=== PATIENT | female | born 1960 | race Caucasian/White ===

== ENCOUNTER 2016-10-11 01:33 | Inpatient (IN) | payer BC ==
[~2016-10-11] VITALS: Ht 167.6 cm; Wt 111.3 kg
--- NOTE | ~2016-10-11 | CON ---
PATIENT'S NAME: CHRISTEN MARIA (EJ) [facility] AGE: 56 Y [address] ROOM: [address] [place], [place] [address] LOCATION: GPCU ADMIT DATE: 10/11/2016 Consultation DISCHARGE DATE: FAMILY PHYSICIAN: ASIF WILL DO ATTENDING PHYSICIAN: TIM HUBBARD DATE OF CONSULTATION: 10/14/2016 REFERRING PHYSICIAN: YOKO SETH MD CONSULTATION NOTE REQUESTING PHYSICIAN: Consultation is requested by Dr. Tim Hubbard and Dr. Swapna Orellana. REASON FOR CONSULTATION: Lumbar wound infection with bacteremia. HISTORY OF PRESENT ILLNESS: Christen is a pleasant 56-year-old female, whom I was asked to see today by Dr. Tim Hubbard and Dr. Swapna Orellana for further evaluation and treatment recommendations regarding lumbar wound infection with staphylococcal bacteremia. She was admitted on 10/11/2016 with two days of swelling, erythema, and fever in the area of prior surgery. She has undergone a posterior lumbar fusion approximately two weeks earlier, and was doing well previously. She did not have any significant drainage from the wound. 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 She underwent surgery on 10/12/2016, with the finding of superficial abscess, with cultures positive for methicillin-susceptible Staphylococcus aureus. Blood cultures obtained at [facility] on 10/11/2016 have grown the same organism from both sets. She is currently on cefazolin 2 g every 8 hours. PAST MEDICAL HISTORY: As above, also obstructive sleep apnea, type 2 diabetes, depression, and spinal stenosis. ALLERGIES: NONE NOTED. CURRENT MEDICATIONS: See the MAR for complete listing. Current antibiotics are cefazolin. SOCIAL HISTORY: PAT[facility]'S NAME: [facility] AGE: 56 Y [address] ROOM: [id number] [place], [place] [address] LOCATION: GPCU ADMIT DATE: 10/11/2016 Consultation DISCHARGE DATE: FAMILY PHYSICIAN: ASIF WILL DO ATTENDING PHYSICIAN: TIM HUBBARD She is a previous cigarette smoker, but does not drink alcohol significantly. FAMILY HISTORY: Significant for type 2 diabetes in her mother. REVIEW OF SYSTEMS: A complete review of systems was carried out, and was remarkable only as noted. Please refer to the admitting history and physical on 10/11/[address] Hubbard for further details. PHYSICAL EXAMINATION: Objective: GENERAL APPEARANCE: She appeared overall comfortable and was in no distress. She appeared nontoxic. VITAL SIGNS: Temperature is 37 degrees, blood pressure 114/55, pulse 76, and respirations 18. HEENT: Posterior pharynx clear, no adenopathy or thyromegaly. Cranial nerves are intact. Neck is supple. CHEST: Clear to auscultation. CARDIOVASCULAR: Regular rate and rhythm without S3, S4, or murmur. ABDOMEN: Soft, nontender, without hepatosplenomegaly or masses. EXTREMITIES: No synovitis or rashes. The lumbar surgical site appeared intact without erythema or drainage. NEUROLOGIC: Strength and sensation grossly intact. PSYCHIATRIC: Behavior and affect appropriate. LABORATORY DATA AND IMAGING STUDIES: Laboratory - creatinine 0.5. Liver function tests, normal. CRP 27.4. White count 7900. Sedimentation rate 69. Microbiology - blood cultures x2 on 10/14/2016 have been drawn and are pending. Surgical cultures from the lumbar back on 10/12/2016 showed Staphylococcus aureus from all specimens. Blood cultures x2 on 10/11/2016 showed Staphylococcus aureus ([facility]). Clostridium difficile toxin assay 10/11/16 was negative. Radiology - CT scan on 10/11/2016 showed fluid collection posterior to the sacrum and postoperative changes. IMPRESSION AND PLAN: Lumbar wound infection and Staphylococcus aureus bacteremia with methicillin- susceptible Staphylococcus aureus. Assuming that there are no further positive cultures, then we will plan on a 2 to 4 week treatment course, with the duration guided by her clinical course and response of inflammatory parameters. Followup blood cultures were obtained today and are pending. If PATIENT'S NAME: CHRISTEN MARIA (EJ) [facility] AGE: 56 Y [address] ROOM: [place] [address] LOCATION: GPCU ADMIT DATE: 10/11/2016 Consultation DISCHARGE DATE: FAMILY PHYSICIAN: ASIF WILL DO ATTENDING PHYSICIAN: TIM HUBBARD these turn positive, then the duration would need to be significantly longer. We will continue with cefazolin 2 g every 8 hours. An alternate would be ertapenem 1 g q.24 hours. She will follow up with us in clinic in 2 weeks after discharge. I am available to answer any questions at [phone]. MD MERLINE CHAVEZ/modl /[id number] CC: MD Tim Alas MD d: 10/14/16 1638 t: 10/15/16 0836, CONSULTATION REPORT
--- NOTE | ~2016-10-11 | HP ---
[facility] A[facility] 56 Y [address] ROOM: [place] [address] LOCATION: GPCU ADMIT DATE: 10/11/2016 History & Physical DISCHARGE DATE: FAMILY PHYSICIAN: ASIF WILL DO ATTENDING PHYSICIAN: ISAI HUBBARD DATE OF SERVICE: CHIEF COMPLAINT: Lower back pain. HISTORY OF PRESENT ILLNESS: This is a 56-year-old female, who on September 23, 2016 in [place] by neurosurgeon, Dr. Curtis Pradhan, performed a PLF/PLIF, lumbar decompression, posterior nonsegmental instrumentation with insertion of interbody biosynthetic device, autograft spine surgery local from same incision, allograft for spine surgery only morselized, and prosthetic implant, nos. At the same time, a presacral mass and severe stenosis and facet synovitis was found and removed. The patient says that after the surgery she was doing well; however, until 2 days ago the surgical site area in her lower back became tender and erythematous and warm and then she was having chills and fever as well. Ever since the surgery, the patient also has been having loose stools about 4 to 5 times a day and yesterday she has had about 2 episodes. She denies any antibiotic usage after the surgery. The patient went to [place] today for evaluation. Given that [place] is further away than our hospital, the patient was sent over here for further care. The patient denies any neurological symptoms such as muscle weakness or numbness or any other symptoms. The pain is localized in the lumbar area and does not radiate. She also denies any bowel or urinary incontinence or retention. The patient also denies any other symptoms. REVIEW OF SYSTEMS: As mentioned in history of present illness. All other systems were reviewed and were negative except those mentioned in history of present illness. PAST MEDICAL HISTORY: 1. History of supraventricular tachycardia in the past. 2. Hypothyroidism. 3. Obstructive sleep apnea on BiPAP at night. 4. Diabetes type 2. 5. Restless legs syndrome. 6. Depression. [facility] 56 Y [address] ROOM: [place] [address] LOCATION: GPCU ADMIT DATE: 10/11/2016 History & Physical DISCHARGE DATE: FAMILY PHYSICIAN: ASIF WILL DO ATTENDING PHYSICIAN: ISAI HUBBARD 7. Spondylolisthesis and spinal stenosis in the lumbar area status post the procedure that I mentioned in the history of present illness on September 23, 2016. ALLERGIES: NONE. HOME MEDICATIONS: Currently is being reconciled. SOCIAL HISTORY: She was a former cigarette smoker about 1 pack per day for many years, but she quit about 1 year ago. She denies any illegal drug or alcohol use. FAMILY HISTORY: Father is healthy. Mother has diabetes type 2. PAST SURGICAL HISTORY: 1. Status post lumbar decompression and PLF/PLIF, posterior nonsegmental instrumentation, insertion of interbody biosynthetic device, autograft spine surgery local from same incision, allograft for spine surgery only morselized, and removal of a presacral mass and also found to have severe stenosis and facet synovitis. This was done on September 23, 2016. 2. Hysterectomy and bilateral salpingo-oophorectomy. 3. Cholecystectomy. PHYSICAL EXAMINATION: VITAL SIGNS: At the time of my evaluation, temperature 99.4, blood pressure 118/54, heart rate 100, respirations 16, saturation 95% on room air. GENERAL APPEARANCE: Alert and oriented x3. Currently, in no acute distress. HEENT: Pupils equally round and reactive to light. Extraocular muscles intact. Anicteric sclerae. Nasal turbinates normal bilaterally. Moist oral mucosa. NECK: No JVD. CARDIOVASCULAR: Regular rate and rhythm. Normal S1 and S2. No murmur. No rubs. No gallops. RESPIRATORY: Clear to auscultation. No rales. No rhonchi. No wheezing. No crackles. ABDOMEN: Obese, soft, nontender, nondistended, normal bowel sounds, no mass. EXTREMITIES: No edema in upper or lower extremities. SKIN: In the lower back in the midline incision in the lumbar area, there is erythema and also loose gabo. I do not appreciate any active drainage. There is some granulation tissue seen. The area is warm, tender, and erythematous. NEUROLOGIC: Grossly nonfocal. PATIENT'S NAME: INDIRA MARIA (EJ) [facility] AGE: 56 Y [address] ROOM: [id number] [place], [place] [address] LOCATION: GPCU ADMIT DATE: 10/11/2016 History & Physical DISCHARGE DATE: FAMILY PHYSICIAN: ASIF WILL DO ATTENDING PHYSICIAN: ISAI HUBBARD LABORATORY DATA: Currently, our labs are pending. Blood work from the outside facility on the day of transfer showed white blood cell 18.5, hemoglobin 13, hematocrit 38.5, platelet 427. Sodium 134, potassium of 3.7, chloride 125, anion gap 18.9, carbon dioxide 24, glucose 121, BUN 11, creatinine 0.8, GFR 74, calcium 9.2, total protein 7.6, globulin 3.2, albumin 4.5, AST 16, ALT 27, alkaline phosphatase 89, total bilirubin 1.1. Lactic acid 1.6. IMAGING STUDIES: None. ASSESSMENT AND PLAN: 1. Regarding her sepsis secondary to cellulitis in the lower back in the postsurgical area in the lumbar area: Not quite sure how deep is the infection given that this is a post surgical site infection area. Currently, the patient does not have any neurological symptoms. I will be getting a CT lumbar spine without contrast for better evaluation to rule out any epidural abscess or other diagnosis that is not evident on simple inspection of the skin. I will get 2 sets of blood culture. The patient already got antibiotics from [place]. The patient got one dose of IV vancomycin and also IV Zosyn. Given that patient is currently hemodynamically stable, I will not continue antibiotics given that I will be getting a CT scan of the lumbar spine right now and I will consult Neurosurgery in case that patient will require debridement and also biopsy, and then at that time, the antibiotics can be started. If it is determined that the patient does not require any debridement or biopsy, the antibiotics of course will be resumed. This was done to avoid decrease in the sensitivity of the quality of the biopsy given that if we give antibiotics, the results can be affected. We will check a UA. Repeat labs in the morning. Further plan will depend on clinical course. The patient will be n.p.o. at midnight. The patient will also be getting IV fluids for hydration. Pain control with IV morphine p.r.n. and also p.o. [place] p.r.n.. Also, after debridement, drainage, or biopsy, will resume antibiotics. 2. Regarding her history of supraventricular tachycardia: We will get EKG right now to confirm sinus rhythm. I will hold the Cardizem in the setting of sepsis. We can always resume if necessary. 3. Regarding her diabetes type 2: We will check A1c. Continue the home insulin but instead of 60 units of the subcu glargine of insulin Levemir, give her 30 units half, and then titrate as necessary. I will also be giving her subcu regular insulin q.6 hours while n.p.o. with low-dose. While she is eating, I will give her subcu aspart insulin a.c. h.s. low dose and titrate as needed. In addition, we will continue her home PATIENT'S NAME: INDIRA MARIA (EJ) [facility] AGE: 56 Y [address] ROOM: [id number] [place], [place] [address] LOCATION: GPCU ADMIT DATE: 10/11/2016 History & Physical DISCHARGE DATE: FAMILY PHYSICIAN: ASIF WILL DO ATTENDING PHYSICIAN: ISAI HUBBARD medication with Victoza. 4. Regarding her hypothyroidism: Check TSH. Continue home dose of the levothyroxine and titrate if needed depending on the TSH level. 5. Regarding her obstructive sleep apnea: For now, use oxygen nasal cannula and titrate at night during bedtime for saturation more than 94%. Tomorrow morning, the patient's will bring the BiPAP at home and then we can use the BiPAP. 6. Regarding her restless legs syndrome: Continue home medication. Currently, the medication list is being reconciled. 7. Regarding her depression: She is not suicidal. Continue the antidepressant that she takes at home which currently is being reconciled. 8. Deep vein thrombosis prophylaxis: The patient will be getting compression devices in anticipation of possible debridement and also biopsy tomorrow. The records of the detailed procedure of the lumbar surgery is already in the chart which is the operative report. 9. She is a full code. Time spent in care on the day of admission 45 minutes where 10 minutes was spent on chart review, and the remainder of the time was spent on interview and physical examination and also on counseling. The counseling includes going over the plan of care with the patient in detail and I answered all her questions and concerns to her satisfaction. Further plan will depend on clinical course. MD LIVAN WINCHESTER/sherry /[id number] D: [id number] T: [id number] HISTORY & PHYSICAL
--- NOTE | ~2016-10-11 | DS ---
PATIENT'S NAME: INDIRA MARIA) [facility] AGE: 56 Y [address] ROOM: [place] [address] LOCATION: GPCU ADMIT DATE: 10/11/2016 Discharge Summary DISCHARGE DATE: 10/16/2016 FAMILY PHYSICIAN: Vincenzo Sims DO ATTENDING PHYSICIAN: Tim Cruz PRIMARY/DISCHARGE DIAGNOSES: 1. Sepsis. 2. Sacral abscess status post incision and drainage. 3. Anasarca. 4. Diabetes mellitus, type 2. 5. Essential hypertension. 6. Chronic hypoxic respiratory failure with chronic obstructive pulmonary disease. 7. Lumbar spinal stenosis status post recent posterior lumbar fusion with laminectomy and decompression. 8. Morbid obesity. 9. Hypothyroidism. 10. Restless legs syndrome. 11. Depression. OPERATIONS OR PROCEDURES: Incision and drainage of the infected lumbar wound. Incision was performed on 10/12/[address] Orellana. HISTORY OF PRESENTING ILLNESS AND REASON FOR ADMISSION: Please refer to the H and P dictated on 10/11/2016. HOSPITAL COURSE: The patient was admitted to the hospital as noted above with a presumptive diagnosis of sepsis with an infected surgical wound following lumbar back surgery which was performed on September 23 at an outside facility in [place]. Briefly, she was hemodynamically stable from the onset. She did receive broad- spectrum antibiotic therapy with vancomycin initially. Cefazolin was added. Eventually, the vancomycin was discontinued. Cultures from an outside facility showed MSSA. Followup blood cultures here were negative. She was taken for I and D of the abscess by Dr. Orellana on 10/12/2016. Wound cultures did reveal an MSSA. She was continued on cefazolin. Infectious Disease was consulted for antibiotic recommendations and treatment duration. She had a mid line placed, but on the date of discharge, this was discontinued and a PICC line was placed. Cultures were negative for more than 48 hours at that point. She was recommended to continue on IV cefazolin for 2 to 4 weeks, and we will do this by home infusion. She was recommended to follow up with PATIENT'S NAME: INDIRA MARIA (EJ) [facility] AGE: 56 Y [address] ROOM: [place] [address] LOCATION: GPCU ADMIT DATE: 10/11/2016 Discharge Summary DISCHARGE DATE: 10/16/2016 FAMILY PHYSICIAN: Vincenzo Sims DO ATTENDING PHYSICIAN: Tim Cruz [facility] in 2 weeks and then outpatient followup with Dr. Orellana. DISCHARGE INSTRUCTIONS: 1. Diet: ADA, 1800-calorie per day as tolerated. 2. Activity: As tolerated. 3. Medications: Cefazolin 2 g IV q.8 hours through 11/09/2016. 4. Pneumococcal vaccine subcutaneous x1. 5. Diltiazem CD 300 mg p.o. q. day. 6. Cymbalta 60 mg p.o. b.i.d. 7. Insulin glargine 60 units subcutaneous q.a.m. 8. Levothyroxine 75 mcg p.o. at bedtime. 9. Trazodone 50 mg p.o. at bedtime. 10. Percocet 5/325, 1 tablet p.o. q.4 hours p.r.n. 11. Victoza subcutaneous q.a.m. 12. Estradiol 0.5 mg p.o. q. day. 13. Metformin 1000 mg p.o. b.i.d. 14. Invokana 300 mg p.o. q.a.m. 15. Flexeril 10 mg p.o. t.i.d. p.r.n. 16. Followup: She will follow up with her primary care physician in 5 to 7 days. 17. She will follow up with Dr. Orellana in 2 weeks, and follow up with Infectious Disease Clinic on the same day. CONDITION ON DISCHARGE: Good. Total time spent on discharge process 45 minutes. MD WHITNEY CLEARY/sherry /[id number] d: 10/16/[id number] t: 10/20/161727, DISCHARGE SUMMARY
--- NOTE | ~2016-10-11 | OR ---
PATIENT'S NAME: INDIRA MARIA (EJ) [facility] AGE: 56 Y [address] ROOM: [address] [address] LOCATION: GPCU ADMIT DATE: 10/11/2016 OR/Procedure Report DISCHARGE DATE: FAMILY PHYSICIAN: ASIF WILL DO ATTENDING PHYSICIAN: ISAI HUBBARD SURGEON: Swapna Orellana MD BRIDGE IRONWORKER: Meli Washington. DATE OF PROCEDURE: 10/12/2016 PREOPERATIVE DIAGNOSIS: Lumbar fusion wound infection. POSTOPERATIVE DIAGNOSIS: Lumbar fusion wound infection. PROCEDURE PERFORMED: Incision, re-exploration, and drainage of infected lumbar wound incision. ANESTHESIA: General. ANESTHESIA PROVIDER: Trevon Kuo CRNA HISTORY: This patient is a 56-year-old female who originally had spinal fusion surgery for spondylolisthesis on September 23, 2016, in [place]. Unfortunately, she developed a wound infection requiring incision and drainage. I went over the benefits, risks, and alternatives of the procedure with the patient, and she was brought to the operating room on October 12, 2016, for the surgery. PROCEDURE IN DETAIL: In the operating room, the patient was placed in a supine position. Anesthesia was induced. She was intubated. She was then rolled to a prone position on a Dami table, taking care to protect all pressure points. The incision was reopened, and almost immediately, purulent fluid came out. The incision was then deepened all the way down to the epidural level and extended the entire length of the incision. More purulent material was extracted. The incision was then copiously irrigated. All visible necrotic tissue was debrided. Hemostasis was achieved. An epidural drain was left and brought out through a separate stab incision. After thorough cleansing of the incision, the wound was closed with appropriate suture materials. A sterile dressing was applied. The patient was then rolled back to a supine position. Her anesthesia was reversed. She was extubated and taken to the recovery room to complete her recovery. I was present at and performed every aspect of this procedure, assisted at different times by the operating room nurses. There were no apparent intraoperative complications. Swabs, needles, and instruments were all accounted for at the end of the case. Estimated blood loss was less than 100 mL, and there was no reason for blood transfusion. The patient is to be started on antibiotics PATIENT'S NAME: INDIRA MARIA (EJ) [facility] AGE: 56 Y [address] ROOM: [place] [address] LOCATION: GPCU ADMIT DATE: 10/11/2016 OR/Procedure Report DISCHARGE DATE: FAMILY PHYSICIAN: ASIF WILL DO ATTENDING PHYSICIAN: ISAI HUBBARD until her incision heals. MD CAITLYN BUTTSO/michaell /[id number] CC: MD sAif Oliveira DO d: 10/14/16 1326 t: 10/15/16 0023, OPERATIVE SUMMARY
--- NOTE | ~2016-10-11 | CON ---
PATIENT'S NAME: CHRISTEN SAAVEDRA) [facility] AGE: 56 Y [address] ROOM: [place] [address] LOCATION: GPCU ADMIT DATE: 10/11/2016 Consultation DISCHARGE DATE: FAMILY PHYSICIAN: ASIF WILL DO ATTENDING PHYSICIAN: ISAI HUBBARD DATE OF CONSULTATION: 10/11/2016 REFERRING PHYSICIAN: YOKO SETH MD REQUESTING PHYSICIAN: Dr. Hubbard, hospitalist. REASON FOR CONSULTATION: Lumbar wound infection. PATIENT IDENTIFICATION: Christen Saavedra is a 56-year-old female. PRESENTING COMPLAINTS: Fever and low back pain. HISTORY OF PRESENT ILLNESS: The patient had posterior lumbar interbody fusion surgery for L4-5 spondylolisthesis in [place] on September 23, 2016. She did well after the surgery and her pain was just around the incision. She then went to [place] again for a followup visit on October 08, 2016, and upon her return, began to experience worsening low back pain and fever. She presented to the emergency room in [place] on the October 10, 2016, and was evaluated and suspected to have a wound infection. She was therefore transferred to [facility] under the care of the hospitalist for evaluation and treatment. I was consulted to see her given that she had had spine surgery done. 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 Currently, the patient complains of back pain and intermittent fever and chills. She has already been started on vancomycin empirically. PAST MEDICAL HISTORY: Significant for hypothyroidism; obstructive sleep apnea, she wears a BiPAP at nighttime; type 2 diabetes; restless legs syndrome; depression; and a history of supraventricular tachycardia. She also has hypothyroidism. CURRENT MEDICATIONS: Please see chart. PATIENT'S NAME: CHRISTEN SAAVEDRATY) [facility] AGE: 56 Y [address] ROOM: [place] [address] LOCATION: GPCU ADMIT DATE: 10/11/2016 Consultation DISCHARGE DATE: FAMILY PHYSICIAN: ASIF WILL DO ATTENDING PHYSICIAN: ISAI HUBBARD ALLERGIES: NONE KNOWN. 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 She is a former pack-a-day cigarette smoker for several years, but she quit a year ago. She is . FAMILY HISTORY: The patient's mother has type 2 diabetes. Father is healthy. REVIEW OF SYSTEMS: A 10-point review of systems was carried out. The only abnormal findings are described in the history of present illness. PHYSICAL EXAMINATION: GENERAL: The patient is a healthy-looking female, not acutely ill at this time. VITAL SIGNS: From chart, blood pressure 118/54, heart rate 100. NEUROLOGICAL: Speech is intact. Cranial nerves, no deficits seen. Motor examination, the patient has normal strength in all the major muscle groups of her upper and lower extremities bilaterally. She is able to ambulate independently and also with physical therapy. Back incision has healed well. There is no drainage. There is some induration around the incision and it is tender to palpation. CARDIOVASCULAR: Heart sounds are present. RESPIRATORY: The patient is not short of breath at bedside. EXTREMITIES: No cyanosis or clubbing. SKIN: No skin rashes or skin masses. ABDOMEN: Obese, nontender. Head: Her head is atraumatic. Eyes and ears: No evidence of trauma. LABORATORY INVESTIGATIONS: We got a call from [facility] in the early hours of October 12, 2016, indicating a positive blood culture. IMAGING STUDIES: The patient had a noncontrast CT scan performed here in [place]. The impression is retrospinal subcutaneous soft tissue induration with an organized fluid collection. Abscess versus seroma within the differential. There is also postsurgical changes at L4-5. White count is 18.5, hemoglobin is 13.0, and platelets 427. PATIENT'S NAME: CHRISTEN SAAVEDRA (EJ) [facility] AGE: 56 Y [address] ROOM: [place] [address] LOCATION: GPCU ADMIT DATE: 10/11/2016 Consultation DISCHARGE DATE: FAMILY PHYSICIAN: ASIF WILL DO ATTENDING PHYSICIAN: ISAI HUBBARD ASSESSMENT: A 56-year-old lady status post spinal fusion presenting with fever, wound pain, positive blood culture, and elevated white count. IMPRESSION: Wound infection with abscess. MEDICAL DECISION MAKING: I discussed treatment options with the patient and in the final analysis, I feel that the safest course of action is an incision and drainage of the wound. I feel this will provide a definitive diagnosis and also achieve decompression of the fluid collection in her back. I have gone over the benefits, risks, and alternatives of the surgery with the patient. The patient has consented to surgery. The procedure will be reexploration of lumbar spinal incision. Procedure will be performed today, October 12, 2016. MD CAITLYN BUTTSO/modl /[id number] CC: DO Piter Simpson MD d: 10/12/16 0939 t: 10/12/16 2206, CONSULTATION REPORT
[2016-10-11] MEDS ORDERED: TOUJEO SOL300 UNIT/1 SUB-Q (02:07)
[2016-10-11] MEDS ORDERED: VICTOZA 3-0.6 MG/0.1 SUB-Q (02:08)
[2016-10-11] MEDS ORDERED: CARDIZEM CD (T300 MG PO (02:09)
[2016-10-11] MEDS ORDERED: ESTRACE0.5 MG PO (02:12)
[2016-10-11] MEDS ORDERED: LEVOTHYROXINE75 MCG PO (02:15)
[2016-10-11] MEDS ORDERED: METFORMIN HCL1000 MG PO (02:16)
[2016-10-11] MEDS ORDERED: INVOKANA300 MG PO (02:17)
[2016-10-11] MEDS ORDERED: DULOXETINE HCL60 MG PO (02:18)
[2016-10-11] MEDS ORDERED: DESYREL50 MG PO (02:18)
[2016-10-11] MEDS ORDERED: PERCOCET 5-3251 EACH PO (02:19)
[2016-10-11] MEDS ORDERED: FLEXERIL10 MG PO (02:19)
[2016-10-11 05:38] LABS: BASOPHIL # 0.1 K/uL (0.0-0.2); BASOPHIL % 0.4 %; EOSINOPHIL % 0.3 %; HEMATOCRIT 34.1 % (33.0-46.0); HEMOGLOBIN 11.5 g/dL (10.0-15.0); IMMATURE GRANULOCYTE # 0.1 K/uL (0.0-0.3); IMMATURE GRANULOCYTE % 0.4 %; LYMPHOCYTE # 1.5 K/uL (0.8-4.0); LYMPHOCYTE % 10.3 %; MCH 27.7 pg (27.0-34.0); MCHC 33.7 gm/dL (32.0-36.5); MCV 82.2 fl (83.0-98.0); MONOCYTE # 0.8 K/uL (0.0-1.0); MONOCYTE % 5.3 %; MPV 8.2 fl (9.4-12.4); NEUTROPHIL # (ANC) 11.9 K/uL (1.8-7.8); NEUTROPHIL % 83.3 %; NRBC % 0 /100WBC (0-0.00); PLATELET COUNT 276 K/uL (150-450); RBC 4.15 M/uL (3.50-5.50); RDW-CV 12.7 % (11.9-14.6); WBC 14.3 K/uL (4.0-11.0)
[2016-10-11 06:02] LABS: ALBUMIN 2.9 gm/dL (3.5-5.0); ALK PHOS 76 IU/L (33-138); ALT 16 IU/L (12-78); ANION GAP 17.3 (10.0-19.0); AST 7 IU/L (10-40); BLOOD UREA NITROGEN 10 mg/dL (6-24); CALCIUM 8.4 mg/dL (8.5-10.5); CHLORIDE 100 mMol/L (96-110); CO2 21 mMol/L (22-32); CPK 39 IU/L (21-215); CREATININE 0.7 mg/dL (0.5-1.1); POTASSIUM 3.3 mMol/L (3.7-5.1); SODIUM 135 mMol/L (135-145); TOTAL BILIRUBIN 1.1 mg/dL (0.0-1.5); TOTAL PROTEIN 6.6 g/dL (6.0-8.4)
[2016-10-11 06:12] LABS: INR - (THERAPEUTIC) 1.16 (0.92-1.07); PROTIME 12.2 SECONDS (9.8-11.4); PTT 35 SECONDS (25-32)
[2016-10-11 09:17] LABS: HEMATOCRIT 32.9 % (33.0-46.0); MCH 27.6 pg (27.0-34.0); MCHC 33.4 gm/dL (32.0-36.5); MCV 82.5 fl (83.0-98.0); MPV 8.2 fl (9.4-12.4); RBC 3.99 M/uL (3.50-5.50); RDW-CV 12.8 % (11.9-14.6); WBC 13.4 K/uL (4.0-11.0)
[2016-10-11 09:43] LABS: ANION GAP 16.3 (10.0-19.0); BLOOD UREA NITROGEN 8 mg/dL (6-24); CALCIUM 8.3 mg/dL (8.5-10.5); CHLORIDE 102 mMol/L (96-110); CO2 21 mMol/L (22-32); CREATININE 0.6 mg/dL (0.5-1.1); POTASSIUM 3.3 mMol/L (3.7-5.1); SODIUM 136 mMol/L (135-145)
[2016-10-11 10:40] LABS: BILIRUBIN URINE NEGATIVE (NEGATIVE); BLOOD URINE NEGATIVE /UL (NEGATIVE); COLOR URINE YELLOW (YELLOW); GLUCOSE URINE 1000 mg/dL (NEGATIVE); KETONE URINE 150 mg/dL (NEGATIVE); LEUKOCYTES URINE NEGATIVE /UL (NEGATIVE); NITRITE URINE NEGATIVE (NEGATIVE); PROTEIN URINE NEGATIVE (NEGATIVE); SPEC GRAVITY URINE 1.015 (1.003-1.035); TURBIDITY URINE CLEAR (CLEAR); UROBILINOGEN URINE NORMAL (NORMAL)
[2016-10-13 05:11] LABS: BASOPHIL % 0.5 %; EOSINOPHIL # 0.4 K/uL (0.0-0.5); EOSINOPHIL % 5.2 %; HEMATOCRIT 29.5 % (33.0-46.0); HEMOGLOBIN 9.4 g/dL (10.0-15.0); IMMATURE GRANULOCYTE # 0.1 K/uL (0.0-0.3); IMMATURE GRANULOCYTE % 0.8 %; LYMPHOCYTE # 1.2 K/uL (0.8-4.0); LYMPHOCYTE % 14.7 %; MCH 26.8 pg (27.0-34.0); MCHC 31.9 gm/dL (32.0-36.5); MONOCYTE # 0.6 K/uL (0.0-1.0); MONOCYTE % 7.5 %; MPV 8.6 fl (9.4-12.4); NEUTROPHIL # (ANC) 5.7 K/uL (1.8-7.8); NEUTROPHIL % 71.3 %; NRBC % 0 /100WBC (0-0.00); PLATELET COUNT 298 K/uL (150-450); RBC 3.51 M/uL (3.50-5.50); RDW-CV 13.3 % (11.9-14.6); WBC 7.9 K/uL (4.0-11.0)
[2016-10-13 05:25] LABS: ALBUMIN 2.3 gm/dL (3.5-5.0); BLOOD UREA NITROGEN 7 mg/dL (6-24); CALCIUM 7.6 mg/dL (8.5-10.5); CHLORIDE 113 mMol/L (96-110); CREATININE 0.5 mg/dL (0.5-1.1); PHOSPHORUS 2.6 mg/dL (2.5-4.9); POTASSIUM 3.9 mMol/L (3.7-5.1); SODIUM 141 mMol/L (135-145)
[2016-10-13 05:26] LABS: ANION GAP 15.9 (10.0-19.0); CO2 16 mMol/L (22-32)
[2016-10-15 07:02] LABS: BASOPHIL % 0.7 %; EOSINOPHIL # 0.5 K/uL (0.0-0.5); EOSINOPHIL % 11.3 %; HEMATOCRIT 27.4 % (33.0-46.0); HEMOGLOBIN 9.2 g/dL (10.0-15.0); IMMATURE GRANULOCYTE % 0.7 %; LYMPHOCYTE # 1.2 K/uL (0.8-4.0); LYMPHOCYTE % 28.7 %; MCH 27.7 pg (27.0-34.0); MCHC 33.6 gm/dL (32.0-36.5); MCV 82.5 fl (83.0-98.0); MONOCYTE # 0.5 K/uL (0.0-1.0); MONOCYTE % 10.8 %; MPV 8.4 fl (9.4-12.4); NEUTROPHIL % 47.8 %; NRBC % 0 /100WBC (0-0.00); PLATELET COUNT 267 K/uL (150-450); RBC 3.32 M/uL (3.50-5.50); RDW-CV 13.2 % (11.9-14.6); WBC 4.2 K/uL (4.0-11.0)
[2016-10-15 07:19] LABS: ALBUMIN 2.3 gm/dL (3.5-5.0); ANION GAP 11.4 (10.0-19.0); BLOOD UREA NITROGEN 6 mg/dL (6-24); CALCIUM 8.5 mg/dL (8.5-10.5); CHLORIDE 109 mMol/L (96-110); CO2 25 mMol/L (22-32); CREATININE 0.5 mg/dL (0.5-1.1); PHOSPHORUS 4.2 mg/dL (2.5-4.9); POTASSIUM 3.4 mMol/L (3.7-5.1); SODIUM 142 mMol/L (135-145)
[2016-10-16] MEDS ORDERED: CEFAZOLIN2 GM/50 M1 IV (10:16)
== END 2016-10-16 13:50 | disposition disaster alternative care site (69) | DRG 856 ==
LOC: GPCU 01:33
PROVIDERS: Family Medicine; ADMIT Internal Medicine
PROC: 009U00Z Drainage of Spinal Canal with Drainage Device, Open Approach (ICD-10-PCS; principal; 2016-10-12)
PROC: 02HV33Z Insertion of Infusion Device into Superior Vena Cava, Percutaneous Approach (ICD-10-PCS; 2016-10-16)
DX: T81.4XXA Infection following a procedure, initial encounter (principal); A41.9 Sepsis, unspecified organism; J96.10 Chronic respiratory failure, unspecified whether with hypoxia or hypercapnia; E44.0 Moderate protein-calorie malnutrition; L03.312 Cellulitis of back [any part except buttock and flank]; E66.01 Morbid (severe) obesity due to excess calories; I10 Essential (primary) hypertension; E11.9 Type 2 diabetes mellitus without complications; B95.61 Methicillin susceptible Staphylococcus aureus infection as the cause of diseases classified elsewhere; J44.9 Chronic obstructive pulmonary disease, unspecified; E03.9 Hypothyroidism, unspecified; Z68.37 Body mass index [BMI] 37.0-37.9, adult; G25.81 Restless legs syndrome; E87.6 Hypokalemia; G47.33 Obstructive sleep apnea (adult) (pediatric); F32.9 Major depressive disorder, single episode, unspecified; Z98.1 Arthrodesis status; Z79.4 Long term (current) use of insulin; Z87.891 Personal history of nicotine dependence; Z98.84 Bariatric surgery status; Z86.79 Personal history of other diseases of the circulatory system; Z23 Encounter for immunization
CPT/HCPCS: C1751; G0009; J0690; J1940; J2270; J3010; J3370; J7030; J7040; J7042; J7050

== ENCOUNTER 2016-11-02 15:54 | Inpatient (IN) | payer BC ==
[~2016-11-02] VITALS: Ht 167.6 cm; Wt 100.4 kg
--- NOTE | ~2016-11-02 | CON ---
PATIENT'S NAME: INDIRA MARIA [facility] AGE: 56 Y [address] ROOM: [address] [address] LOCATION: [facility] ADMIT DATE: 11/02/2016 Consultation DISCHARGE DATE: FAMILY PHYSICIAN: ASIF WILL DO ATTENDING PHYSICIAN: Swapna Orellana REASON FOR CONSULTATION: Medical management. HISTORY OF PRESENT ILLNESS: This is a 56-year-old female who says that roughly 3 days ago, she starts noticing this yellowish and bloody secretion coming out from the surgical site (she had a history of infected surgical wound from lumbar back surgery back in [place] and she was hospitalized here in our hospital earlier this month for infected surgical wound from the lumbar back surgery and also was found to have MSSA bacteremia. Currently still on long-term cefazolin antibiotics via PICC line, scheduled to finish on 11/09/2016). She says that the drainage is not foul smelling and she denies any fever or chills. She actually denies any pain at that time. She went to [place] on that same day and 3 days ago to the emergency room, but she was sent home without any further intervention. When she went home, the drainage continued and then she started feeling a little bit of pain in that area and then she called the wound care nurse and the patient was referred here to follow with Dr. Orellana. Dr. Orellana saw the patient today in the office and the patient underwent CT- guided lumbar wound drainage and they put a draining tube and then sent the secretion for sensitivity, culture and Gram stain and about 40 mL of serosanguineous fluid was collected during the draining process. REVIEW OF SYSTEMS: As mentioned in the history of present illness. All other systems were reviewed and were negative except those mentioned in history of present illness. PAST MEDICAL HISTORY: 1. History of sacral abscess status post incision and drainage from infected lumbar spinal stenosis surgical wound and she was hospitalized here in early October 2016. She was found to have MSSA bacteremia as well. Currently, still on cefazolin to be continued until November 2016. 2. Diabetes type 2. 3. Hypertension. 4. COPD. 5. Obstructive sleep apnea, on home CPAP. 6. Restless legs syndrome. 7. Hypothyroidism. 8. Depression. PATIENT'S NAME: INDIRA MARIA [facility] AGE: 56 Y [address] ROOM: [id number] [place], [place] [address] LOCATION: [facility] ADMIT DATE: 11/02/2016 Consultation DISCHARGE DATE: FAMILY PHYSICIAN: ASIF WILL DO ATTENDING PHYSICIAN: Swapna Orellana HOME MEDICATIONS: Currently has been reconciled. SOCIAL HISTORY: She was a former cigarette smoker about 1 pack per day for many years but she quit 1 year ago. She denies any illegal drug or alcohol use. FAMILY HISTORY: Father is healthy. Mother has diabetes type 2. PAST SURGICAL HISTORY: 1. Status post lumbar decompression. Lower back surgery for spinal lumbar spinal stenosis. Has hardware implantation at that time as well and got sacral wound infection with sacral abscess status post incision and drainage and found to have MSSA bacteremia and currently still on cefazolin with PICC line to be continued until November 2016. 2. Hysterectomy and bilateral salpingo-oophorectomy. 3. Cholecystectomy. PHYSICAL EXAMINATION: VITAL SIGNS: At the time of evaluation, temperature was 98, heart rate was 64, respiration was 18, blood pressure 142/80, saturation 93% on room air. GENERAL APPEARANCE: Alert and oriented x3. Currently, in no acute distress. HEENT: Pupils are equal, round, and reactive to light. Extraocular muscles intact. Anicteric sclerae. Nasal turbinates are normal bilaterally. Moist oral mucosa. NECK: No JVD. CARDIOVASCULAR: Regular rate and rhythm. No murmur. No rubs. No gallops. Normal S1, S2. RESPIRATORY: Clear to auscultation. No rales. No rhonchi. No wheezing. No crackles. ABDOMEN: Obese, soft, nontender, nondistended, bowel sounds present, no mass. EXTREMITIES: No edema in upper or lower extremities. SKIN: On the lower back and on the lumbosacral area, there is surgical incision scar currently does not look infected and there is no active drainage. There is no secretion coming out. On the left side lateral to the lumbar sacral area, there is a dressing on and she has a draining tube, draining about 200 mL of a serosanguineous fluid in the back. Some tenderness to palpation in the draining tube placement area. NEUROLOGIC: Grossly nonfocal. LABORATORY DATA: No labs were drawn on admission. IMAGING STUDIES: PATIENT'S NAME: INDIRA MARIA [facility] AGE: 56 Y [address] ROOM: [id number] [place], [place] [address] LOCATION: [facility] ADMIT DATE: 11/02/2016 Consultation DISCHARGE DATE: FAMILY PHYSICIAN: ASIF WILL DO ATTENDING PHYSICIAN: Swapna Orellana MRI of the lumbar spine on admission showed postoperative L4-L5 laminectomy, interbody fusion, and posterior stabilization. Large posterior subcutaneous fluid collection deep to the incision, increased versus 10/11/2016. Abscess could not be excluded. This communicates with a deeper small fluid collection in the L4-L5 laminectomy bed. No evidence of diskitis or osteomyelitis. No abnormal epidural fluid collections. ASSESSMENT AND PLAN: 1. Regarding her postoperative lumbar surgical area drainage and fluid collection: Abscess less likely given that during the draining process, it was a serosanguineous fluid. However I will be checking a blood work right now to make sure she is not septic and will also be giving her antibiotics that she is already on which is cefazolin given that she has evidence of MSSA from last admission from bacteremia. We will consult ID again this Wednesday to continue to follow up. We will follow on the Gram stain, culture and sensitivity from the draining secretion during the surgery today. Further plan will depend on clinical course. Currently, there is no more planned surgery in the near future. She can have a diabetic diet. Pain control with IV morphine p.r.n. Further plan will depend on clinical course. 2. Regarding her type 2 diabetes. A1c was already checked last time on 10/11/2016 was 5.8. Continue sliding scale insulin with NovoLog. Mild a.c. and h.s. as well as continue her home medication which would include Toujeo 60 units daily as well as Victoza 1.8 mg subcu daily and the Invokana 300 mg p.o. daily. Titrate as necessary. 3. Regarding her hypothyroidism. Continue current levothyroxine 75 mcg p.o. daily. No need to repeat TSH since she was checked recently on last admission. 4. Hypertension: Continue home medication with holding parameter. Continue home medication which include Cardizem. 5. Regarding her chronic obstructive pulmonary disease. Continue oxygen as necessary to keep saturation more than 88%. Currently not in flare. Does not require nebulization at the moment. 6. Depression: Continue her home medication with duloxetine. 7. Regarding her obstructive sleep apnea. The patient refused CPAP or BiPAP. Continue home oxygen as necessary to keep saturation more than 88%. 8. Regarding her deep venous thrombosis prophylaxis. Per Neurosurgery. Currently, she is on compression devices. 9. She is a full code. 10. We will also be getting 2 sets of blood culture to make sure that her history of MSSA bacteremia does not repeat at this time. Time spent in care on the day of admission 45 minutes where 10 minutes was spent on chart review, remainder of the time was spent on interview and PATIENT'S NAME: INDIRA MARIA [facility] AGE: 56 Y [address] ROOM: [place] [address] LOCATION: [facility] ADMIT DATE: 11/02/2016 Consultation DISCHARGE DATE: FAMILY PHYSICIAN: ASIF WILL DO ATTENDING PHYSICIAN: Swapna Orellana physical examination and also on counseling. The counseling includes going over the plan of care with the patient and addressing all the questions and concerns that the patient had. Further plan will depend on clinical course. I answered all her questions to her satisfaction. Further plan will depend on clinical course. ISAI HUBBARD MD CC/michaell /[id number] d: 11/03/16910 t: 11/16/162037, CONSULTATION REPORT
[~2016-11-02 15:54] MED LIST changes: -HYDROCODON-ACE1 EAC4 PO
[2016-11-02] MEDS ORDERED: HYDROCODON-ACE1 EAC4 PO (20:20)
[2016-11-03 02:15] LABS: BASOPHIL % 0.6 %; EOSINOPHIL # 0.2 K/uL (0.0-0.5); EOSINOPHIL % 3.9 %; HEMOGLOBIN 10.6 g/dL (10.0-15.0); IMMATURE GRANULOCYTE % 0.2 %; LYMPHOCYTE % 36.2 %; MCHC 31.8 gm/dL (32.0-36.5); MCV 81.8 fl (83.0-98.0); MONOCYTE # 0.4 K/uL (0.0-1.0); MONOCYTE % 7.6 %; MPV 8.3 fl (9.4-12.4); NEUTROPHIL # (ANC) 2.8 K/uL (1.8-7.8); NEUTROPHIL % 51.5 %; NRBC % 0 /100WBC (0-0.00); PLATELET COUNT 242 K/uL (150-450); RBC 4.07 M/uL (3.50-5.50); RDW-CV 13.3 % (11.9-14.6); WBC 5.4 K/uL (4.0-11.0)
[2016-11-03 02:23] LABS: HEMATOCRIT 33.3 % (33.0-46.0)
[2016-11-03 02:25] LABS: INR - (THERAPEUTIC) 0.99 (0.92-1.07); PROTIME 10.4 SECONDS (9.8-11.4)
[2016-11-03 02:32] LABS: PTT 26 SECONDS (25-32)
[2016-11-03 02:39] LABS: ALK PHOS 67 IU/L (33-138); ANION GAP 10.9 (10.0-19.0); AST 9 IU/L (10-40); BLOOD UREA NITROGEN 9 mg/dL (6-24); CALCIUM 8.7 mg/dL (8.5-10.5); CHLORIDE 107 mMol/L (96-110); CO2 28 mMol/L (22-32); CREATININE 0.5 mg/dL (0.5-1.1); POTASSIUM 3.9 mMol/L (3.7-5.1); SODIUM 142 mMol/L (135-145); TOTAL PROTEIN 6.6 g/dL (6.0-8.4)
[2016-11-03 02:40] LABS: ALT < 10 IU/L (12-78); TOTAL BILIRUBIN 0.2 mg/dL (0.0-1.5)
[2016-11-03 08:49] LABS: HEMATOCRIT 30.9 % (33.0-46.0); HEMOGLOBIN 9.7 g/dL (10.0-15.0); MCH 25.8 pg (27.0-34.0); MCHC 31.4 gm/dL (32.0-36.5); MCV 82.2 fl (83.0-98.0); MPV 8.4 fl (9.4-12.4); RBC 3.76 M/uL (3.50-5.50); RDW-CV 13.5 % (11.9-14.6); WBC 4.5 K/uL (4.0-11.0)
[2016-11-03 08:54] LABS: ANION GAP 10.9 (10.0-19.0); BLOOD UREA NITROGEN 8 mg/dL (6-24); CALCIUM 8.3 mg/dL (8.5-10.5); CHLORIDE 107 mMol/L (96-110); CO2 27 mMol/L (22-32); CREATININE 0.6 mg/dL (0.5-1.1); POTASSIUM 3.9 mMol/L (3.7-5.1); SODIUM 141 mMol/L (135-145)
[2016-11-04] MEDS ORDERED: FLEXERIL10 MG PO (10:33)
== END 2016-11-05 15:14 | disposition disaster alternative care site (69) | DRG 863 ==
LOC: GOPD 15:54 → G3N 17:37
PROVIDERS: Internal Medicine; ADMIT Neurological Surgery
DX: T81.4XXA Infection following a procedure, initial encounter (principal); L02.212 Cutaneous abscess of back [any part, except buttock and flank]; I10 Essential (primary) hypertension; F32.9 Major depressive disorder, single episode, unspecified; E11.9 Type 2 diabetes mellitus without complications; B95.61 Methicillin susceptible Staphylococcus aureus infection as the cause of diseases classified elsewhere; J44.9 Chronic obstructive pulmonary disease, unspecified; G47.33 Obstructive sleep apnea (adult) (pediatric); G25.81 Restless legs syndrome; Z79.4 Long term (current) use of insulin
CPT/HCPCS: A9577; C1729; G0378; J0690; J2001; J7030; J7050

== ENCOUNTER → 2016-11-02 | Outpatient (CLI) | payer BC ==
[~2016-11-02] MED LIST: CARDIZEM CD (T300 MG PO; CEFAZOLIN2 GM/50 M1 IV; DESYREL50 MG PO; DULOXETINE HCL60 MG PO; ESTRACE0.5 MG PO; FLEXERIL10 MG PO; HYDROCODON-ACE1 EAC4 PO; INVOKANA300 MG PO; LEVOTHYROXINE75 MCG PO; METFORMIN HCL1000 MG PO; PERCOCET 5-3251 EACH PO; TOUJEO SOL300 UNIT/1 SUB-Q; VICTOZA 3-0.6 MG/0.1 SUB-Q
== END | disposition disaster alternative care site (69) ==
LOC: GRAD 12:03
DX: T81.4XXA Infection following a procedure, initial encounter (principal); M43.26 Fusion of spine, lumbar region; Z98.890 Other specified postprocedural states
CPT/HCPCS: J2250; J3010